=== PATIENT | male | born 1990 | race Caucasian/White ===

== ENCOUNTER 2020-10-14 18:19 | Emergency (ER) | payer OTHER ==
[2020-10-14 19:18] LABS: BASOPHIL 0.6 % (0-2); HCT 42.4 % (42.0-52.0); HGB 14.3 g/dl (13.2-18.0); MCH 28.5 pg (25.0-31.0); MCHC 33.7 g/dL (32.0-36.0); MCV 84.5 fL (78.0-100.0); MONOCYTE 7.9 % (0-12); MPV 11.4 fL (6.0-9.5); NEUTROPHIL 39.1 % (41-80); NRBC 0; PLT 171 K/uL (150-400); RBC 5.02 M/uL (4.70-6.00); WBC 6.7 K/uL (4.0-10.5)
[2020-10-14 19:34] LABS: ALBUMIN 4.2 g/dL (3.4-5.0); BILIRUBIN - TOTAL 0.4 mg/dL (0.2-1.0); BUN/CREAT RATIO (CALC) 20.2 RATIO; CREATININE 1.04 mg/dL (0.67-1.17); GLOBULIN (CALCULATION) 3.6 g/dL; POTASSIUM 4.3 mmol/L (3.5-5.1); TOTAL PROTEIN 7.8 g/dL (6.4-8.2)
[2020-10-14 21:29] LABS: PRO-BNP 31 pg/mL (<125)
[2020-10-14] MEDS ORDERED: PROAIR HFA8.5 GM INH (22:04)
[2020-10-14] MEDS ORDERED: VIBRAMYCIN100 MG PO (22:04)
[2020-10-16 14:08] LABS: LYME IGG/IGM AB <0.91 ISR (0.00-0.90)
[2020-10-17 18:08] LABS: E. CHAFFEENSIS (HME) IGG TITER Negative (Neg:<1:64); E. CHAFFEENSIS (HME) IGM TITER Negative (Neg:<1:20)
== END 2020-10-14 22:38 | disposition home or self-care (01) ==
LOC: FER 18:19
PROVIDERS: Internal Medicine; Physician Assistant
DX: R06.02 Shortness of breath (principal); S80.862A Insect bite (nonvenomous), left lower leg, initial encounter; S80.861A Insect bite (nonvenomous), right lower leg, initial encounter; R07.89 Other chest pain; R42 Dizziness and giddiness; Z79.899 Other long term (current) drug therapy; W57.XXXA Bitten or stung by nonvenomous insect and other nonvenomous arthropods, initial encounter
CPT/HCPCS: 36415; 71046; 80053; 83880; 84484; 85025; 86618; 86666; 86757; 93005